=== PATIENT | female | born 1995 | race Caucasian/White ===

== ENCOUNTER 2016-11-16 14:04 | Emergency (ER) | payer MEDICAID ==
[2016-11-16 15:01] VITALS: BP 109/94
== END 2016-11-16 15:43 | disposition home or self-care (01) ==
LOC: ED 14:04
DX: O9A.211 Injury, poisoning and certain other consequences of external causes complicating pregnancy, first trimester (principal); S39.81XA Other specified injuries of abdomen, initial encounter; F15.10 Other stimulant abuse, uncomplicated; J45.909 Unspecified asthma, uncomplicated; F41.9 Anxiety disorder, unspecified; Z3A.12 12 weeks gestation of pregnancy; Y04.2XXA Assault by strike against or bumped into by another person, initial encounter; Y93.89 Activity, other specified; Y92.89 Other specified places as the place of occurrence of the external cause; Y99.8 Other external cause status

== ENCOUNTER 2016-12-09 20:15 | Emergency (ER) | payer MEDICAID ==
[2016-12-09 21:51] LABS: microscopic required? YES; urine erythrocyte NEGATIVE (NEGATIVE)
[2016-12-09 21:54] LABS: BASOPHIL % 0.3 % (0-2); PLATELET COUNT 267 x10^3mcL (130-400); RED CELL DISTRIBUTION WIDTH 12.5 % (11.5-14.5)
[2016-12-09 22:07] LABS: CALCIUM 8.5 mg/dL (8.5-10.1); CARBON DIOXIDE 26.7 mmol/L (21-32); CHLORIDE SERUM 104 mmol/L (98-107); CREATININE SERUM 0.4 mg/dL (0.6-1.0); GFR1 > 60 mL/min; GLUCOSE SERUM 79 mg/dL (74-106); POTASSIUM SERUM 3.4 mmol/L (3.5-5.1); SODIUM SERUM 138 mmol/L (136-145)
[2016-12-09 22:13] LABS: ALKALINE PHOSPHATASE 52 U/L (46-116); ALT/SGPT 15 U/L (14-59); AMYLASE 70 U/L (25-115); AST/SGOT 13 U/L (15-37); BILIRUBIN TOTAL 0.17 mg/dL (0.20-1.00); LIPASE 131 IU/L (73-393); TOTAL PROTEIN, SERUM 6.5 g/dL (6.4-8.2)
[2016-12-09 22:16] LABS: ALBUMIN 3.1 g/dL (3.4-5.0)
[2016-12-09 23:52] VITALS: BP 106/57
== END 2016-12-09 23:53 | disposition home or self-care (01) ==
LOC: ED 20:15
PROVIDERS: Emergency Medicine
DX: O26.892 Other specified pregnancy related conditions, second trimester (principal); R10.9 Unspecified abdominal pain; J45.909 Unspecified asthma, uncomplicated; Z3A.15 15 weeks gestation of pregnancy